=== PATIENT | male | born 1970 | race Caucasian/White ===

== ENCOUNTER → 2024-02-26 18:09 | Outpatient (CLI) | payer BC, SELFPAY ==
--- NOTE | 2024-02-26 18:13 | DI.RAD.S_ITS ---
PROCEDURE: XR CERVICAL SPINE 2V OR 3V INDICATIONS: cervical radiculopathy TECHNIQUE: Three-view (s) of the cervical spine were acquired. COMPARISON: None. FINDINGS: Cervical spine curvature and alignment: Normal. Bones: There are no osseous abnormalities. Disc spaces: Mild C5-6 and C6-7 degenerative disc disease noted. Intervertebral foramen: Grossly normal in width. Soft tissues: No soft tissue swelling, calcification or mass. IMPRESSION: Mild degeneration Dictated by: Maurilio Schuler M.D. on 02/27/2024 at 10:08 Approved by: Maurilio Schuler M.D. on 02/27/2024 at 10:09
== END ==
LOC: RAD 18:11
PROVIDERS: PCP Student in an Organized Health Care Education/Training Program; Referring Provider Family Medicine; Visit Provider Family Medicine
DX: M50.122 Cervical disc disorder at C5-C6 level with radiculopathy (principal)
CPT/HCPCS: 72040